=== PATIENT | male | born 1960 | race African-American/Black ===

== ENCOUNTER 2019-08-11 08:35 | Emergency (ER) | payer OTHER ==
--- NOTE | 2019-08-11 09:26 | ER ---
Nurse's Notes [facility] Name: Richard Sutton Age: 59 yrs Sex: Male : 1960 Arrival Date: 08/11/2019 Time: 08:37 Bed 5 Private MD: Ed Luna R Diagnosis: Periapical abscess without sinus Presentation: 08/11 08:56 Presenting complaint: Patient states: Noticed facial swelling this morning. Transition sg of care: patient was not received from another setting of care. Onset of symptoms was August 11, 2019. Risk Assessment: Do you want to hurt yourself or someone else? Patient reports no desire to harm self or others. Initial Sepsis Screen: Does the patient meet any 2 criteria? Yes Does the patient have a suspected source of infection? No. Patient's initial sepsis screen is negative. Care prior to arrival: None. 08:56 Method Of Arrival: Ambulatory sg 08:56 Acuity: STEVE 4 sg 08:56 Note believes the swelling started two days ago and has just gotten worse. sg Historical: - Allergies: 08:57 No Known Allergies; sg - Home Meds: 09:05 amlodipine oral [Active]; Lisinopril Oral [Active]; Xarelto oral oral [Active]; sg - PMHx: 09:05 Hypertension; sg - PSHx: 08:57 neck sx; sg 09:05 Colon Resection; sg - Immunization history:: Adult Immunizations unknown. - Social history:: Patient/guardian denies using tobacco products, Smoking status: Patient denies any tobacco usage or history of. - Ebola Screening: : Patient negative for fever greater than or equal to 101.5 degrees Fahrenheit, and additional compatible Ebola Virus Disease symptoms Patient denies exposure to infectious person Patient denies travel to an Ebola-affected area in the 21 days before illness onset No symptoms or risks identified at this time. Screenin:41 Abuse screen: Denies threats or abuse. Denies injuries from another. Nutritional sg screening: No deficits noted. Tuberculosis screening: No symptoms or risk factors identified. Never had TB. Fall Risk None identified. Assessment: 08:40 General: Appears in no apparent distress. well groomed, well developed, well nourished, sg Behavior is calm, cooperative, appropriate for age. Pain: Complains of pain in left cheek Quality of pain is described as throbbing. Neuro: Level of Consciousness is awake, alert, obeys commands, Oriented to person, place, time, [place] are equal bilaterally Moves all extremities. Gait is steady, Speech is normal, Facial symmetry appears normal. Cardiovascular: Patient's skin is warm and dry. Chest pain is denied. Respiratory: Airway is patent Respiratory effort is even, unlabored, Respiratory pattern is regular, symmetrical. GI: Abdomen is round non-distended. : No signs and/or symptoms were reported regarding the genitourinary system. EENT: Reports pain in left cheek and pain in gums. Derm: Skin is pink, warm \T\ dry. Musculoskeletal: Circulation, motion, and sensation intact. Range of motion: intact in all extremities. Vital Signs: 08:48 BP 125 / 94; Pulse 89; Resp 16; Temp 98.5; Pulse Ox 100% ; Weight 102.06 kg; Height 5 ms ft. 11 in. (180.34 cm); Pain 10/10; 08:48 Body Mass Index 31.38 (102.06 kg, 180.34 cm) ms ED Course: 08:37 Patient arrived in ED. ag5 08:37 Ed Luna MD is Private Physician. ag5 08:40 Patient has correct armband on for positive identification. Bed in low position. Call sg light in reach. Side rails up X2. Pulse ox on. NIBP on. 08:56 Triage completed. sg 08:57 [facility]bar [facility]C [facility]. kb 08:57 Oniel Muñoz MD is Attending Physician. kb 08:57 Arm band placed on. sg 08:59 Roverto Bolivar, ASPEN is Primary Nurse. sg 09:40 No provider procedures requiring assistance completed. Patient did not have IV access sg during this emergency room visit. Administered Medications: 09:28 Drug: Augmentin 875 mg Route: PO; sg 09:28 Drug: [place] 5 mg-325 mg 1 tabs Route: PO; sg Outcome: 09:26 Discharge ordered by . kb 09:40 Discharged to home ambulatory, with family. sg 09:40 Condition: good 09:40 Discharge instructions given to patient, Instructed on discharge instructions, follow up and referral plans. medication usage, safety practices, Demonstrated understanding of instructions, follow-up care, Prescriptions given X 1. 09:45 Patient left the ED. sg Signatures: Preethi Dunbar, JULIO CESAR CHARLES-Roverto Knutson RN RN Betsey Steele ms, Ajare ag5 Corrections: (The following items were deleted from the chart) 09:05 08:58 Home Meds: Cannot recall Names of meds at this time; [facility]
--- NOTE | 2019-08-11 09:26 | EDPHYS ---
Physician Documentation [facility] Name: Richard Sutton Age: 59 yrs Sex: Male : 1960 Arrival Date: 08/11/2019 Time: 08:37 Bed 5 Private MD: Ed Luna R ED Physician Oniel Muñoz HPI: 08/11 09:23 This 59 yrs old Black Male presents to ER via Ambulatory with complaints of Facial kb Swelling. 09:23 The patient presents with pain, swelling. The problem is located in the left cheek. kb Onset: The symptoms/episode began/occurred 2 day(s) ago. Duration: The symptoms are continuous. Modifying factors: The symptoms are alleviated by nothing, the symptoms are aggravated by nothing. Associated signs and symptoms: Pertinent positives: chills, fever, pain, swelling. Severity of symptoms: At their worst the symptoms were moderate, in the emergency department the symptoms are unchanged. The patient has experienced similar episodes in the past. The patient has not recently seen a physician. Pt reports he has had dental pain for 2 days with fever, chills and body aches. Woke up with swelling to face today. Historical: - Allergies: 08:57 No Known Allergies; sg - Home Meds: 09:05 amlodipine oral [Active]; Lisinopril Oral [Active]; Xarelto oral oral [Active]; sg - PMHx: 09:05 Hypertension; sg - PSHx: 08:57 neck sx; sg 09:05 Colon Resection; sg - Immunization history:: Adult Immunizations unknown. - Social history:: Patient/guardian denies using tobacco products, Smoking status: Patient denies any tobacco usage or history of. - Ebola Screening: : Patient negative for fever greater than or equal to 101.5 degrees Fahrenheit, and additional compatible Ebola Virus Disease symptoms Patient denies exposure to infectious person Patient denies travel to an Ebola-affected area in the 21 days before illness onset No symptoms or risks identified at this time. ROS: 09:22 Neck: Negative for injury, pain, and swelling, Cardiovascular: Negative for chest pain, kb palpitations, and edema, Respiratory: Negative for shortness of breath, cough, wheezing, and pleuritic chest pain, Abdomen/GI: Negative for abdominal pain, nausea, vomiting, diarrhea, and constipation, Back: Negative for injury and pain, MS/Extremity: Negative for injury and deformity, Skin: Negative for injury, rash, and discoloration, Neuro: Negative for headache, weakness, numbness, tingling, and seizure. 09:22 Constitutional: Positive for body aches, chills, fever. 09:22 ENT: Positive for dental pain. Exam: :22 Constitutional: This is a well developed, well nourished patient who is awake, alert, kb and in no acute distress. ENT: Nares patent. No nasal discharge, no septal abnormalities noted. Tympanic membranes are normal and external auditory canals are clear. Oropharynx with no redness, swelling, or masses, exudates, or evidence of obstruction, uvula midline. Mucous membranes moist. Neck: Trachea midline, no thyromegaly or masses palpated, and no cervical lymphadenopathy. Supple, full range of motion without nuchal rigidity, or vertebral point tenderness. No Meningismus. Chest/axilla: Normal chest wall appearance and motion. Nontender with no deformity. No lesions are appreciated. Cardiovascular: Regular rate and rhythm with a normal S1 and S2. No gallops, murmurs, or rubs. Normal PMI, no JVD. No pulse deficits. Respiratory: Lungs have equal breath sounds bilaterally, clear to auscultation and percussion. No rales, rhonchi or wheezes noted. No increased work of breathing, no retractions or nasal flaring. Abdomen/GI: Soft, non-tender, with normal bowel sounds. No distension or tympany. No guarding or rebound. No evidence of tenderness throughout. Back: No spinal tenderness. No costovertebral tenderness. Full range of motion. Skin: Warm, dry with normal turgor. Normal color with no rashes, no lesions, and no evidence of cellulitis. MS/ Extremity: Pulses equal, no cyanosis. Neurovascular intact. Full, normal range of motion. Neuro: Awake and alert, GCS 15, oriented to person, place, time, and situation. Cranial nerves II-XII grossly intact. Motor strength 5/5 in all extremities. Sensory grossly intact. Cerebellar exam normal. Normal gait. :22 Head/face: Noted is no obvious of injury or deformity except swelling, that is moderate, of the left cheek. Vital Signs: 08:48 BP 125 / 94; Pulse 89; Resp 16; Temp 98.5; Pulse Ox 100% ; Weight 102.06 kg; Height 5 ms ft. 11 in. (180.34 cm); Pain 10/10; 08:48 Body Mass Index 31.38 (102.06 kg, 180.34 cm) ms MDM: 08:57 Patient medically screened. kb 09:22 Data reviewed: vital signs, nurses notes. Data interpreted: Pulse oximetry: on room air kb is 100 %. Interpretation: normal. Counseling: I had a detailed discussion with the patient and/or guardian regarding: the historical points, exam findings, and any diagnostic results supporting the discharge/admit diagnosis, the need for outpatient follow up, a family practitioner, to return to the emergency department if symptoms worsen or persist or if there are any questions or concerns that arise at home. Administered Medications: 09:28 Drug: Augmentin 875 mg Route: PO; sg 09:28 Drug: [place] 5 mg-325 mg 1 tabs Route: PO; sg Disposition: 08/12 07:44 Co-signature as Attending Physician, Oniel Muñoz MD I agree with the assessment and [facility] plan of care. Disposition: 08/11/19 09:26 Discharged to Home. Impression: Periapical abscess without sinus. - Condition is Stable. - Discharge Instructions: Dental Pain, [id number], Dental Abscess, [id number]. - Prescriptions for Augmentin 875- 125 mg Oral Tablet - take 1 tablet by ORAL route every 12 hours for 10 days; 20 tablet. - Medication Reconciliation Form, Thank You Letter, Antibiotic Education, Prescription Opioid Use, Work release form, Family Work Release form. - Follow up: Emergency Department; When: As needed; Reason: Worsening of condition. Follow up: Private Physician; When: 2 - 3 days; Reason: Recheck today's complaints, Continuance of care, Re-evaluation by your physician. Signatures: Preethi Dunbar FNP-C FNP-Roverto Knutson RN RN sg Anderson, Corey, MD MD [facility] Corrections: (The following items were deleted from the chart) 08/11 09:05 08:58 Home Meds: Cannot recall Names of meds at this time; [facility] 09:45 09:26 08/11/2019 09:26 Discharged to Home. Impression: Periapical abscess without sg sinus. Condition is Stable. Forms are Medication Reconciliation Form, Thank You Letter, Antibiotic Education, Prescription Opioid Use. Follow up: Emergency Department; When: As needed; Reason: Worsening of condition. Follow up: Private Physician; When: 2 - 3 days; Reason: Recheck today's complaints, Continuance of care, Re-evaluation by your physician. kb
[2019-08-11] MEDS ORDERED: HYDROCODONE/APAP 5/325 MG TAB ONE (09:28)
[2019-08-11] MEDS ORDERED: AMOX/K CLAV 875 MG TAB ONE (09:29)
[2019-08-11 09:50] VITALS: BP 125/94; TEMP 98.5; O2SAT 100
== END 2019-08-11 09:45 | disposition home or self-care (01) ==
LOC: ER 08:35
DX: K04.7 Periapical abscess without sinus (principal); I10 Essential (primary) hypertension; Z72.0 Tobacco use; Z79.01 Long term (current) use of anticoagulants
CPT/HCPCS: 99283

== ENCOUNTER 2021-09-13 11:49 | Emergency (ER) | payer OTHER ==
--- OUTSIDE RECORDS SUMMARY | 2021-09-13 11:52 | XMS REPORT | Continuity of Care Document ---
:1960 Author Organization [facility] t Address [address] [place] [address] Dr. Nevarez [address] [place] [address] Care Team Providers Name Role Phone Dhruv-Mbayo_A_AH Attending Clinician Unavailable Dhruv-Mbayo_A_AH Admitting Clinician Unavailable Payers Payer Name Policy Type Policy Number Effective Date Expiration Date S julian [facility] - [id number] 2019 [employer] 00:00:00 (MEDICARE REPLACEMENT/ADVANT AGE - HMO) Problems This patient has no known problems. Allergies, Adverse Reactions, Alerts This patient has no known allergies or adverse reactions. Medications This patient has no known medications. Procedures This patient has no known procedures. Encounters Start End Encounter Admission Attending Care Care Encounter Source Date/Time Date/Time Type Type Clinicians Facility Department ID 2019-10-13 2019-10-13 Outpatient Dhruv-Mbayo VFP VFP [id number] [facility] 05:50:00 05:50:00 _A_AH [id number] Family Practic e 2019-09-10 2019-09-10 Outpatient Dhruv-Mbayo VFP VFP [id number] [facility] 07:23:00 07:23:00 _A_AH [id number] Family Practic e Results This patient has no known results.
--- NOTE | 2021-09-13 15:40 | ER ---
Nurse's Notes [facility] Name: Richard Sutton Age: 61 yrs Sex: Male : 1960 Arrival Date: 09/13/2021 Time: 11:50 Bed External Waiting Private MD: Diagnosis: Presentation: 09/13 12:06 Chief complaint: Patient states: he began having diarrhea this morning, and reports ap3 going to the restroom every 15-20 minutes. Patient reports he is beginning to feel slightly weak. Patient reports nausea, but no vomiting. Coronavirus screen: At this time, the client does not indicate any symptoms associated with coronavirus-19. Ebola Screen: No symptoms or risks identified at this time. Initial Sepsis Screen: Does the patient meet any 2 criteria? HR > 90 bpm. No. Patient's initial sepsis screen is negative. Does the patient have a suspected source of infection? No. Patient's initial sepsis screen is negative. Risk Assessment: Do you want to hurt yourself or someone else? Patient reports no desire to harm self or others. Onset of symptoms was September 13, 2021. 12:06 Method Of Arrival: Ambulatory ap3 12:06 Acuity: STEVE 3 ap3 Triage Assessment: 12:09 General: Appears in no apparent distress. uncomfortable, Behavior is calm, cooperative. ap3 Pain: Complains of pain in abdomen Quality of pain is described as aching, crampy, Pain began suddenly, 4 hours ago. Is intermittent, Also complains of nausea. Neuro: Level of Consciousness is awake, alert, obeys commands, Oriented to person, place, time, situation, Appropriate for age Speech is normal. Cardiovascular: Patient's skin is warm and dry. Respiratory: Airway is patent Respiratory effort is even, unlabored. GI: Reports lower abdominal pain, upper abdominal pain, diarrhea, nausea. Historical: - Allergies: 12:07 No Known Allergies; ap3 - Home Meds: 12:07 amlodipine oral [Active]; lisinopril Oral [Active]; Xarelto Oral [Active]; atorvastatin ap3 oral [Active]; - PMHx: 12:07 Hypertension; ap3 - Immunization history:: Client reports receiving the 2nd dose of the Covid vaccine, Flu vaccine is not up to date. - Social history:: Smoking status: Patient denies any tobacco usage or history of. Screenin:10 Abuse screen: Denies threats or abuse. Nutritional screening: No deficits noted. ap3 Tuberculosis screening: No symptoms or risk factors identified. Assessment: 15:30 Reassessment: Called from ER lobby. No answer. Unable to locate patient. ss 15:38 Reassessment: Called from ER lobby. No answer. Unable to locate patient. ss Vital Signs: 12:06 BP 127 / 77; Pulse 96; Resp 17; Temp 97.9; Pulse Ox 96% ; Weight 98.43 kg; Height 5 ft. ap3 11 in. (180.34 cm); Pain 10/10; 12:06 Body Mass Index 30.27 (98.43 kg, 180.34 cm) ap3 ED Course: 11:50 Patient arrived in ED. ds1 12:07 Triage completed. ap3 12:10 Arm band placed on left wrist. ap3 Administered Medications: No medications were administered Outcome: 15:39 Eloped from waiting room. ss 15:39 unknown 15:40 Patient left the ED. ss Signatures: Maritza Hagan ds1 Elizabeth Ortez, RN RN ss Alena Farris RN RN ap3
== END 2021-09-13 15:40 | disposition left against medical advice (07) ==
LOC: ER 11:49
DX: Z53.21 Procedure and treatment not carried out due to patient leaving prior to being seen by health care provider (principal)
CPT/HCPCS: 99281

== ENCOUNTER 2021-09-14 07:24 | Observation (INO) | payer OTHER ==
--- OUTSIDE RECORDS SUMMARY | 2021-09-14 07:26 | XMS REPORT | Continuity of Care Document ---
:1960 Author Organization [facility] t Address [address] [place] [address] Dr. Nevarez [address] [place] [address] Care Team Providers Name Role Phone Dhruv-Mbayo_A_AH Attending Clinician Unavailable Dhruv-Mbayo_A_AH Admitting Clinician Unavailable Payers Payer Name Policy Type Policy Number Effective Date Expiration Date S julian [facility] - [id number] 2019 [employer] 00:00:00 (MEDICARE REPLACEMENT/ADVANT AGE - [...] 2019-10-13 Outpatient Dhruv-Mbayo VFP VFP [id number] [facility] 05:50:00 05:50:00 _A_AH [id number] Family Practic e 2019-09-10 2019-09-10 Outpatient Dhruv-Mbayo VFP VFP [id number] [facility] 07:23:00 07:23:00 _A_AH [id number] Family Practic e Results This patient has no known results.
[2021-09-14] MEDS ORDERED: NA CHLORIDE 0.9% 1,000 ML ONE ×2 (08:22→09:52)
[2021-09-14] MEDS ORDERED: ONDANSETRON 4 MG/2 ML VIAL ONE (08:22)
[2021-09-14 08:49] LABS: Absolute Lymphocytes (CBC) 0.5 K/uL (0.7-4.9); Hematocrit 41.5 % (39.6-49.0); MPV 9.6 fL (7.6-11.3); RBC Red Blood Cell Count 5.18 M/uL (4.33-5.43)
[2021-09-14 09:13] LABS: Albumin 4.2 g/dL (3.4-5.0); Bilirubin Direct 0.2 mg/dL (0-0.2); Bilirubin Total 0.7 mg/dL (0.2-1.0); Protein, Total 9.2 g/dL (6.4-8.2)
--- NOTE | 2021-09-14 10:00 | RAD REPORT ---
EXAM DESCRIPTION: CT - Abdomen Pelvis Wo Contrast - 09/14/2021 9:36 am CLINICAL HISTORY: ABD PAIN COMPARISON: Abdomen Pelvis W Contrast dated 05/10/2017 TECHNIQUE: Axial [address] imaging of the abdomen and pelvis was performed without IV contrast. No IV contrast was given because of allergy, abnormal renal function, patient refusal or physician re quest. No oral contrast administered. All CT scans are performed using dose optimization technique as appropriate and may include automated exposure control or mA/KV adjustment according to patient size. FINDINGS: No suspicious findings in the lung bases. Liver shows fatty infiltration pattern with no focal lesion on noncontrast imaging. Pancreas and sple en without suspicious finding. There are splenic granulomatous calcifications. Gallbladder and biliar y tree are also without suspicious finding. Gallstones can be occult on CT imaging. No hydronephrosis or suspicious renal mass. No significant adrenal finding. Isodense renal masses an d pyelonephritis cannot be excluded in the absence of IV contrast. Mostly contracted urinary bladder shows no suspicious finding. Stomach is distended by fluid. No gastric wall thickening or mass seen. Outlet obstruction is not gisel pected. Findings may reflect a gastroenteritis. Small bowel loops are not dilated. Partial resection of the right-side colon noted. The anastomosis has no acute component. Air and fluid are present in t he transverse colon. Left-sided colon is mostly decompressed. A primary colon process is not suspecte d. No free air, free fluid or inflammatory stranding. No hernia, mass or bulky lymphadenopathy. No suspicious bony findings. IMPRESSION: Stomach is distended by fluid and may reflect a gastro paresis or gastroenteritis. There is no wall thickening, mass or other findings of gastric outlet obstruction. No acute bowel process seen. An overall enteritis would be possible as well. Full assessment is limited is the absence of IV contrast.
--- NOTE | 2021-09-14 10:18 | EDPHYS ---
Physician Documentation [facility] Name: Richard Sutton Age: 61 yrs Sex: Male : 1960 Arrival Date: 09/14/2021 Time: 07:25 Bed 17 Private MD: Ed Luna R ED Physician Pavan Myers HPI: 09/14 10:15 This 61 yrs old Black Male presents to ER via Ambulatory with complaints of Diarrhea, kb dehydration, General Weakness. 10:15 The patient presents to the emergency department with nausea, vomiting, diarrhea, kb abdominal pain. Onset: The symptoms/episode began/occurred yesterday. Possible causes: unknown. The symptoms are aggravated by nothing. The symptoms are alleviated by nothing. Associated signs and symptoms: Pertinent positives: abdominal pain, diarrhea, nausea, vomiting. Severity of symptoms: At their worst the symptoms were moderate in the emergency department the symptoms are unchanged. The patient has not experienced similar symptoms in the past. The patient has not recently seen a physician. Pt reports n/v/d and abd cramping that started yesterday morning. States he has been unable to tolerate anything by mouth. . Historical: - Allergies: 07:35 No Known Allergies; ap3 - Home Meds: 07:35 amlodipine oral [Active]; atorvastatin Oral [Active]; lisinopril Oral [Active]; Xarelto ap3 Oral [Active]; - PMHx: 07:35 Hypertension; ap3 - Immunization history:: Client reports receiving the 2nd dose of the Covid vaccine, Flu vaccine is not up to date. Patient has never been vaccinated. - Social history:: Smoking status: Patient denies any tobacco usage or history of. ROS: 10:14 Constitutional: Negative for fever, chills, and weight loss. kb 10:14 Abdomen/GI: Positive for nausea, vomiting, and diarrhea, abdominal cramps. 10:14 All other systems are negative. Exam: 10:14 Constitutional: This is a well developed, well nourished patient who is awake, alert, kb and in no acute distress. Head/Face: Normocephalic, atraumatic. ENT: Moist Mucous membranes Cardiovascular: Regular rate and rhythm with a normal S1 and S2. No gallops, murmurs, or rubs. No pulse deficits. Respiratory: Respirations even and unlabored. No increased work of breathing. Talking in full sentences Skin: Warm, dry with normal turgor. Normal color. MS/ Extremity: Pulses equal, no cyanosis. Neurovascular intact. Full, normal range of motion. Neuro: Awake and alert, GCS 15, oriented to person, place, time, and situation. Moves all extremities. Normal gait. Psych: Awake, alert, with orientation to person, place and time. Behavior, mood, and affect are within normal limits. 10:14 Abdomen/GI: Inspection: abdomen appears normal, Bowel sounds: normal, in all quadrants, Palpation: soft, in all quadrants, mild abdominal tenderness, in the right upper quadrant. Vital Signs: 07:32 BP 142 / 106; Pulse 107; Resp 17; Temp 97.9; Pulse Ox 100% ; Weight 101.15 kg; Height 5 ap3 ft. 11 in. (180.34 cm); 09:45 BP 119 / 56; Pulse 91; Resp 16; Pulse Ox 95% ; bp 10:35 BP 138 / 82; Pulse 94; Resp 16; Pulse Ox 95% ; bp 12:00 BP 106 / 88; Pulse 89; Resp 16; Pulse Ox 98% ; ss7 13:00 BP 128 / 53; Pulse 89; Resp 16; Pulse Ox 98% ; ss7 14:00 BP 82 / 63; Pulse 86; Resp 17; Pulse Ox 96% ; ss7 15:00 BP 117 / 61; Pulse 81; Resp 16; Pulse Ox 95% ; bp 15:58 BP 124 / 67; Pulse 80; Resp 17; Pulse Ox 95% ; bp 07:32 Body Mass Index 31.10 (101.15 kg, 180.34 cm) ap3 MDM: 07:38 Patient medically screened. kb 10:14 Data reviewed: vital signs, nurses notes. Data interpreted: Pulse oximetry: on room air kb is 95 %. Interpretation: normal. Counseling: I had a detailed discussion with the patient and/or guardian regarding: the historical points, exam findings, and any diagnostic results supporting the discharge/admit diagnosis, lab results, radiology results, the need for further work-up and treatment in the hospital. 10:16 Physician consultation: Bertrand Diego MD was contacted at 10:16, regarding admission, kb to the medical/surgical unit. patient's condition, and will see patient in ED. 09/14 07:46 Order name: Basic Metabolic Panel kb 09/14 07:46 Order name: CBC with Diff; Complete Time: 09:04 kb 09/14 07:46 Order name: Hepatic Function; Complete Time: 09:29 kb 09/14 07:46 Order name: Lipase; Complete Time: 09:29 kb 09/14 07:47 Order name: Basic Metabolic Panel; Complete Time: 09:29 EDMS 09/14 10:18 Order name: COVID-19 SARS RT PCR (Document "Date of Onset" if Symptomatic); Complete kb Time: 14:39 09/14 09:26 Order name: Abdomen ; Complete Time: 10:06 EDMS 09/14 13:06 Order name: BMP; Complete Time: 14:06 iw 09/14 13:57 Order name: Comprehensive Metabolic Panel EDMS 09/14 13:57 Order name: CBC with Automated Diff EDMS 09/14 13:57 Order name: CBC with Automated Diff EDMS 09/14 13:57 Order name: Comprehensive Metabolic Panel EDMS 09/14 13:58 Order name: Renal Ultrasound-Complete EDMS 09/14 07:46 Order name: IV Saline Lock; Complete Time: 08:38 kb 09/14 07:46 Order name: Labs collected and sent; Complete Time: 08:38 kb 09/14 13:57 Order name: Full Liquid EDMS 09/14 13:58 Order name: Renal Ultrasound-Complete EDMS Administered Medications: 08:30 Drug: NS 0.9% 1000 ml Route: IV; Rate: 1000 ml; Site: left antecubital; bp 09:56 Follow up: IV Status: Completed infusion; IV Intake: 1000ml bp 08:30 Drug: Zofran (Ondansetron) 4 mg Route: IVP; Site: left antecubital; bp 09:56 Follow up: Response: Nausea is decreased bp 09:55 Drug: NS 0.9% 1000 ml Route: IV; Rate: 1000 ml; Site: left antecubital; bp 16:11 Follow up: IV Status: Completed infusion; IV Intake: 1000ml bp Disposition Summary: 09/14/21 10:17 Hospitalization Ordered Hospitalization Status: Inpatient Admission kb Provider: Bertrand Diego Location: Telemetry/MedSur (Inpatient) kb Condition: Stable kb Problem: new kb Symptoms: are unchanged kb Bed/Room Type: Standard kb [facility](09/14/21 15:28) bd Diagnosis - Acute kidney failure, unspecified kb - Dehydration kb - Nausea with vomiting, unspecified kb - Diarrhea, unspecified kb Forms: - Medication Reconciliation Form kb - SBAR form kb Addendum: 09/16/2021 22:44 Co-signature as Attending Physician, Pavan Myers MD. [facility] Signatures: Dispatcher [employer] EDWY Preethi Dunbar, SIGNS AND DISPLAYS SALESPERSON-C SIGNS AND DISPLAYS SALESPERSON-Kristin Bullock Brian, RN RN bp Alena Farris RN RN ap3 Pavan Myers MD MD [id number] Corrections: (The following items were deleted from the chart) 09/14 09:26 07:47 Abdomen Pelvis W Con+CT.RAD.BRZ ordered. [facility] 15:28 10:17 kb bd
--- NOTE | 2021-09-14 10:18 | ER ---
Nurse's Notes [facility] Name: Richard Sutton Age: 61 yrs Sex: Male : 1960 Arrival Date: 09/14/2021 Time: 07:25 Bed 17 Private MD: Ed Luna R Diagnosis: Acute kidney failure, unspecified;Dehydration;Nausea with vomiting, unspecified;Diarrhea, unspecified Presentation: 09/14 07:32 Chief complaint: Patient states: he started having diarrhea yesterday morning, and it ap3 hasn't resolved. Patient reports being weak at this time, and says he hasn't had much to eat since the diarrhea began, but has tried to stay hydrated. Patient also reports having periods where his hands cramp. Coronavirus screen: At this time, the client does not indicate any symptoms associated with coronavirus-19. Ebola Screen: No symptoms or risks identified at this time. Initial Sepsis Screen: Does the patient meet any 2 criteria? HR > 90 bpm. No. Patient's initial sepsis screen is negative. Does the patient have a suspected source of infection? No. Patient's initial sepsis screen is negative. Risk Assessment: Do you want to hurt yourself or someone else? Patient reports no desire to harm self or others. Onset of symptoms was September 13, 2021. 07:32 Method Of Arrival: Ambulatory ap3 07:32 Acuity: STEVE 3 ap3 Triage Assessment: 07:36 General: Appears in no apparent distress. uncomfortable, Behavior is calm, cooperative, ap3 appropriate for age. Pain: Complains of pain in abdomen Pain currently is 2 out of 10 on a pain scale. Quality of pain is described as crampy. Neuro: Level of Consciousness is awake, alert, obeys commands, Oriented to person, place, time, situation, Appropriate for age Gait is steady, Speech is normal. Cardiovascular: Patient's skin is warm and dry. Respiratory: Airway is patent Respiratory effort is even, unlabored. GI: Reports cramping, diarrhea. Historical: - Allergies: 07:35 No Known Allergies; ap3 - Home Meds: 07:35 amlodipine oral [Active]; atorvastatin Oral [Active]; lisinopril Oral [Active]; Xarelto ap3 Oral [Active]; - PMHx: 07:35 Hypertension; ap3 - Immunization history:: Client reports receiving the 2nd dose of the Covid vaccine, Flu vaccine is not up to date. Patient has never been vaccinated. - Social history:: Smoking status: Patient denies any tobacco usage or history of. Screenin:37 Abuse screen: Denies threats or abuse. Nutritional screening: No deficits noted. ap3 Tuberculosis screening: No symptoms or risk factors identified. 07:37 Fall Risk Fall in past 12 months (25 points). No secondary diagnosis (0 pts). ap3 Ambulatory Aid- None/Bed Rest/Nurse Assist (0 pts). Gait- Normal/Bed Rest/Wheelchair (0 pts) Mental Status- Oriented to own ability (0 pts). Total Porter Fall Scale indicates Low Risk Score (25-44 pts). Fall prevention measures have been instituted. Side Rails Up X 2 Placed close to Nursing Station Frequent Obs/Assesments occuring As available Patient and Family Educated on Fall Prevention Program and strategies. Assessment: 07:45 General: SEE TRIAGE NOTE. bp 09:45 Reassessment: No changes from previously documented assessment. Patient and/or family bp updated on plan of care and expected duration. Pain level reassessed. PT RETURNED FROM CT. 10:35 Reassessment: No changes from previously documented assessment. Patient and/or family bp updated on plan of care and expected duration. Pain level reassessed. ADMIT INITIATED. 11:23 Reassessment: No changes from previously documented assessment. Patient and/or family bp updated on plan of care and expected duration. Pain level reassessed. HOSPITALIST AT B/S. 12:30 Reassessment: No changes from previously documented assessment. Patient and/or family ss7 updated on plan of care and expected duration. Pain level reassessed. 13:30 Reassessment: No changes from previously documented assessment. Patient and/or family ss7 updated on plan of care and expected duration. Pain level reassessed. 15:04 Reassessment: No changes from previously documented assessment. Patient and/or family ss7 updated on plan of care and expected duration. Pain level reassessed. ADMIT IN PROCESS. 15:58 Reassessment: BED ASSIGNED. bp Vital Signs: 07:32 BP 142 / 106; Pulse 107; Resp 17; Temp 97.9; Pulse Ox 100% ; Weight 101.15 kg; Height 5 ap3 ft. 11 in. (180.34 cm); 09:45 BP 119 / 56; Pulse 91; Resp 16; Pulse Ox 95% ; bp 10:35 BP 138 / 82; Pulse 94; Resp 16; Pulse Ox 95% ; bp 12:00 BP 106 / 88; Pulse 89; Resp 16; Pulse Ox 98% ; ss7 13:00 BP 128 / 53; Pulse 89; Resp 16; Pulse Ox 98% ; ss7 14:00 BP 82 / 63; Pulse 86; Resp 17; Pulse Ox 96% ; ss7 15:00 BP 117 / 61; Pulse 81; Resp 16; Pulse Ox 95% ; bp 15:58 BP 124 / 67; Pulse 80; Resp 17; Pulse Ox 95% ; bp 07:32 Body Mass Index 31.10 (101.15 kg, 180.34 cm) ap3 ED Course: 07:25 Patient arrived in ED. am2 07:25 Ed Luna MD is Private Physician. am2 07:35 Triage completed. ap3 07:37 Arm band placed on right wrist. ap3 07:38 Preethi Dunbar FNP-C is PHCP. kb 07:38 Pavan Myers MD is Attending Physician. kb 07:45 Patient has correct armband on for positive identification. Bed in low position. Call bp light in reach. Side rails up X2. 08:03 Babatunde Barnard, ASPEN is Primary Nurse. bp 08:30 Inserted saline lock: 20 gauge in left antecubital area, using aseptic technique. Blood bp collected. 09:37 Abdomen In Process Unspecified. EDMS 09:56 Basic Metabolic Panel Sent. bp 10:16 Bertrand Diego MD is Hospitalizing Provider. kb 15:58 No provider procedures requiring assistance completed. Patient admitted, IV remains in bp place. Administered Medications: 08:30 Drug: NS 0.9% 1000 ml Route: IV; Rate: 1000 ml; Site: left antecubital; bp 09:56 Follow up: IV Status: Completed infusion; IV Intake: 1000ml bp 08:30 Drug: Zofran (Ondansetron) 4 mg Route: IVP; Site: left antecubital; bp 09:56 Follow up: Response: Nausea is decreased bp 09:55 Drug: NS 0.9% 1000 ml Route: IV; Rate: 1000 ml; Site: left antecubital; bp 16:11 Follow up: IV Status: Completed infusion; IV Intake: 1000ml bp Intake: 09:56 IV: 1000ml; Total: 1000ml. bp 16:11 IV: 1000ml; Total: 2000ml. bp Outcome: 10:17 Decision to Hospitalize by Provider. kb 16:10 Admitted to Med/surg accompanied by tech, via wheelchair, room 205, with chart, Report bp called to VIPIN LOUISE 16:10 Condition: stable 16:10 Instructed on the need for admit. 16:49 Patient left the ED. bp Signatures: Dispatcher [employer] EDMS Preethi Dunbar, CHILD NUTRITION MANAGER-C CHILD NUTRITION MANAGER-CkAlena Sullivan am2 Babatunde Barnard, RN RN bp Alena Farris RN RN ap3 Baylee Lainez RN RN ss7
[2021-09-14 13:31] LABS: Potassium 3.9 mmol/L (3.5-5.1)
[2021-09-14] MEDS ORDERED: ONDANSETRON 4 MG/2 ML VIAL IV PRN (13:55)
[2021-09-14] MEDS ORDERED: ACETAMINOPHEN 500 MG TAB PO PRN (13:55)
[2021-09-14] MEDS ORDERED: MORPHINE 2 MG/ML SYR IV PRN (13:55)
[2021-09-14] MEDS: NA CHLORIDE 0.9% 1,000 ML IV SCH (16:56)
[2021-09-14 17:07] VITALS: BMI 31.1
[2021-09-14] MEDS ORDERED: INFLUENZA VACCINE (for 6+ mo) 0.5 ML DOSE IMVAC ONE (18:00)
[2021-09-15] MEDS: NA CHLORIDE 0.9% 1,000 ML IV SCH (00:41)
[2021-09-15] MEDS: AMLODIPINE 10 MG TAB PO SCH ×2 (03:17→09:00)
[2021-09-15] MEDS: ATORVASTATIN 20 MG TAB PO SCH ×2 (03:18→09:00)
[2021-09-15] MEDS: lisinopriL 20 MG TAB PO SCH ×2 (03:18→09:00)
[2021-09-15 06:01] LABS: Absolute Lymphocytes (CBC) 0.9 K/uL (0.7-4.9); Hematocrit 35.8 % (39.6-49.0); Lymphocytes % 16.8 % (15.3-44.8); MPV 9.1 fL (7.6-11.3); RBC Red Blood Cell Count 4.53 M/uL (4.33-5.43)
[2021-09-15 06:19] LABS: Albumin 3.4 g/dL (3.4-5.0); Bilirubin Total 0.5 mg/dL (0.2-1.0); Protein, Total 7.4 g/dL (6.4-8.2)
--- NOTE | 2021-09-15 07:15 | RAD REPORT ---
EXAM DESCRIPTION: US - Renal Ultrasound-Complete - 09/15/2021 3:50 am CLINICAL HISTORY: LALI COMPARISON: Abdomen Pelvis Wo Contrast dated 09/14/2021 FINDINGS: The right kidney measures grossly 11 x 5 cm. The left kidney measures grossly 10 x 6 cm. Renal cortical thickness and echogenicity are normal. No hydronephrosis or suspicious renal mass. No bladder wall focal thickening or mass. Wall thickness overall is accentuated by limited volume. No intraluminal stone or mass. IMPRESSION: No hydronephrosis or suspicious renal mass. Renal parenchymal echogenicity within limits normal.
[2021-09-15 08:00] LABS: Blood Morphology Comment NOT SEEN (NOT SEEN); Platelet Estimate ADEQ
[2021-09-15 08:52] VITALS: BP 117/60; TEMP 97.3
[2021-09-15 11:24] VITALS: O2SAT 94
--- NOTE | 2021-09-15 12:06 | P.HP ---
Certification for Inpatient Patient admitted to: Observation With expected LOS: <2 Midnights Patient will require the following post-hospital care: None Practitioner: I am a practitioner with admitting privileges, knowledge of patient current condition, hospital course, and medical plan of care. Services: Services provided to patient in accordance with Admission requirements found in Title 42 Section 412.3 of the Code of Federal Regulations Patient History Date of Service: 09/14/21 Reason for admission: Severe dehydration and acute kidney injury History of Present Illness: Patient is a 61-year-old gentleman who came to the hospital with severe dehydration. Patient's been having intractable nausea and vomiting along with diarrhea. Patient decided to come into the emergency room for further evaluation. In the emergency room patient was found to have acute kidney injury. Patient was started on IV fluids. Patient is hemodynamically stable. At this time, patient will be admitted to the hospital for further evaluation. Patient also has a history of prostate cancer. This has been in remission. Allergies No Known Allergies Allergy (Unverified 09/14/21 15:23) Home Medications: Rivaroxaban [Xarelto] 20 mg PO BEDTIME 09/14/21 Amlodipine [Norvasc*] 20 mg PO DAILY 09/15/21 Atorvastatin Calcium [Lipitor*] 20 mg PO DAILY 09/15/21 Lisinopril [Zestril] 20 mg PO DAILY 09/15/21 Ondansetron [Zofran] 4 mg PO Q6H PRN #10 tab 09/15/21 - Past Medical/Surgical History Diabetic: No -: htn -: hyperlipidemia -: stroke -: prostate ca -: neck sx -: abd sx - Family History Father Family History: Reviewed- Non-Contributory - Social History Smoking Status: Never smoker Alcohol use: Yes CD- Drugs: No Place of Residence: Home Review of Systems 10-point ROS is otherwise unremarkable Physical Examination - Vital Signs Temperature: 97.3 F Blood Pressure: 117/60 Pulse: 76 Respirations: 14 Pulse Ox (%): 94 - Physical Exam General: Alert, In no apparent distress, Oriented x3 HEENT: Atraumatic, PERRLA, Mucous membr. moist/pink, EOMI, Sclerae nonicteric Neck: Supple, 2+ carotid pulse no bruit, No LAD, Without JVD or thyroid abnormality Respiratory: Clear to auscultation bilaterally, Normal air movement Cardiovascular: Regular rate/rhythm, Normal S1 S2, No murmurs Gastrointestinal: Normal bowel sounds, Soft and benign, Non-distended, No tenderness Musculoskeletal: No clubbing, No swelling, No tenderness Integumentary: No rashes Neurological: Normal gait, Normal speech, Normal strength at 5/5 x4 extr, Normal tone, Sensation intact, Cranial nerves 3-12 intact, Normal affect Lymphatics: No axilla or inguinal lymphadenopathy - Studies Laboratory Data (last 24 hrs) 09/14/21 13:10: Sodium 136, Potassium 3.9, BUN 34 H, Creatinine 1.80 H D, Glucose 100 Assessment & Plan - Problems (Diagnosis) (1) Acute kidney injury Status: Acute (2) Viral gastroenteritis Status: Acute (3) Prostate cancer Status: Acute - Plan Plan: 1. Continue with aggressive IV hydration 2. Continue monitoring labs 3. Monitor orthostatics 4. Monitor hemodynamics 5. GI DVT prophylaxis Discharge Plan: Home Plan to discharge in: 24 Hours - Advance Directives Does patient have a Living Will: No Does patient have a Durable POA for Healthcare: No - Code Status/Comfort Care Code Status Assessed: Yes Code Status: Full Code Critical Care: No Time Spent Managing PTS Care (In Minutes): 45
--- NOTE | 2021-09-15 12:07 | P.DS ---
Discharge Date: 09/15/21 Disposition: ROUTINE DISCHARGE Discharge Condition: GOOD Reason for Admission: Severe dehydration and acute kidney injury - Problems (1) Acute kidney injury Status: Acute (2) Viral gastroenteritis Status: Acute (3) Prostate cancer Status: Acute Brief History of Present Illness: Patient is a 61-year-old gentleman who came to the hospital with severe dehydration. Patient's been having intractable nausea and vomiting along with diarrhea. Patient decided to come into the emergency room for further evaluation. In the emergency room patient was found to have acute kidney injury. Patient was started on IV fluids. Patient is hemodynamically stable. At this time, patient will be admitted to the hospital for further evaluation. Patient also has a history of prostate cancer. This has been in remission. Hospital Course: Patient renal function is stable. Patient was aggressively hydrated. Patient is tolerating diet. At this time, patient stable for discharge home. Vital Signs/Physical Exam: Temp Pulse Resp BP Pulse Ox 97.3 F 76 14 117/60 94 09/15/21 12:06 09/15/21 12:06 09/15/21 12:06 09/15/21 12:06 09/15/21 12:06 General: Alert, In no apparent distress, Oriented x3 Laboratory Data at Discharge: WBC 5.20 K/uL (4.3-10.9) D 09/15/21 05:43 Hgb 11.7 g/dL (13.6-17.9) L 09/15/21 05:43 Hct 35.8 % (39.6-49.0) L 09/15/21 05:43 Plt Count 220 K/uL (152-406) D 09/15/21 05:43 Sodium 137 mmol/L (136-145) 09/15/21 05:43 Potassium 4.0 mmol/L (3.5-5.1) 09/15/21 05:43 BUN 19 mg/dL (7-18) H 09/15/21 05:43 Creatinine 1.03 mg/dL (0.55-1.3) 09/15/21 05:43 Glucose 117 mg/dL (74-106) H 09/15/21 05:43 Total Bilirubin 0.5 mg/dL (0.2-1.0) 09/15/21 05:43 AST 37 U/L (15-37) 09/15/21 05:43 ALT 57 U/L (12-78) 09/15/21 05:43 Alkaline Phosphatase 66 U/L (45-117) 09/15/21 05:43 Lipase 113 U/L (73-393) 09/14/21 08:30 Home Medications: Rivaroxaban [Xarelto] 20 mg PO BEDTIME 09/14/21 Amlodipine [Norvasc*] 20 mg PO DAILY 09/15/21 Atorvastatin Calcium [Lipitor*] 20 mg PO DAILY 09/15/21 Lisinopril [Zestril] 20 mg PO DAILY 09/15/21 Ondansetron [Zofran] 4 mg PO Q6H PRN #10 tab 09/15/21 New Medications: Ondansetron [Zofran] 4 mg PO Q6H PRN #10 tab PRN Reason: Nausea / Vomiting Physician Discharge Instructions: -DC IV and DC home -Follow-up with PCP in 1 to 2 weeks -Please call Dr. Diego at [phone] if any questions regarding hospital stay -Please call nursing station at [phone] if any nursing or medication questions -Return to the emergency room if symptoms worsen Diet: Regular Activity: Fall precautions Followup: Ed Luna MD [Primary Care Provider] - 1-2 Weeks (PCP- call to schedule an appointment ) Time spent managing pt's care (in minutes): 35
[2021-09-15] MEDS ORDERED: RIVAROXABAN 20 MG TABLET PO SCH (21:00)
== END 2021-09-15 10:50 | disposition home or self-care (01) ==
LOC: ER 07:24 → ERHOLD 13:55 → 2ND 16:33
PROVIDERS: ADMIT Hospitalist; ATTEND Hospitalist
DX: N17.9 Acute kidney failure, unspecified (principal); A08.4 Viral intestinal infection, unspecified; E86.0 Dehydration; I10 Essential (primary) hypertension; E78.5 Hyperlipidemia, unspecified; Z85.46 Personal history of malignant neoplasm of prostate; Z86.73 Personal history of transient ischemic attack (TIA), and cerebral infarction without residual deficits; Z20.822 Contact with and (suspected) exposure to COVID-19
CPT/HCPCS: 96361; 85025 ×2; 80048 ×2; 36415; 80076; 83690; 80053; 74176; 76770; 96374; 99285; U0003; J7030 ×4; J2405; G0378 ×3